=== PATIENT | male | born 1990 | race Caucasian/White ===

== ENCOUNTER 2020-11-10 18:25 | Emergency (ER) | payer BC ==
[~2020-11-10 18:25] MED LIST: AUGMENTIN 875-1 EACH PO; D3-5050000 UNIT PO; IBU800 MG PO; IBUPROFEN800 MG PO; KEFLEX CAP 500500 MG PO; KEFLEX500 MG PO; LEVAQUIN500 MG PO; NORCO 7.5-3251 EACH PO; PERCOCET 5-3251 EACH PO; VITAMIN C 500500 MG PO
== END 2020-11-10 19:10 | disposition home or self-care (01) ==
LOC: ER1 18:25
DX: S51.012A Laceration without foreign body of left elbow, initial encounter (principal); F17.200 Nicotine dependence, unspecified, uncomplicated; W26.8XXA Contact with other sharp object(s), not elsewhere classified, initial encounter; Y92.009 Unspecified place in unspecified non-institutional (private) residence as the place of occurrence of the external cause
CPT/HCPCS: 12002; 99283

== ENCOUNTER 2021-09-02 21:51 | Emergency (ER) | payer SELFPAY ==
[2021-09-02] MEDS ORDERED: IBUPROFEN600 MG PO (23:48)
[2021-09-02] MEDS ORDERED: BACTROBAN OINT22 GM EXT (23:48)
== END 2021-09-03 00:01 | disposition home or self-care (01) ==
LOC: ER1 21:51
DX: S81.011A Laceration without foreign body, right knee, initial encounter (principal); W45.8XXA Other foreign body or object entering through skin, initial encounter; Y99.0 Civilian activity done for income or pay
CPT/HCPCS: 12002; 99282